=== PATIENT | female | born 1980 | race Caucasian/White ===

== ENCOUNTER 2017-09-10 14:27 | Emergency (ER) | payer OTHER ==
[~2017-09-10] VITALS: Ht 165.1 cm; Wt 74.8 kg
[~2017-09-10 14:27] MED LIST: MOTRIN800 MG PO; SYNTHROID75 MCG
[2017-09-10] MEDS ORDERED: VOLTAREN-XR100 MG PO (17:29)
[2017-09-10] MEDS ORDERED: CYCLOBENZAPRINE10 MG PO (17:29)
== END 2017-09-10 18:59 | disposition home or self-care (01) ==
LOC: ER 14:27
DX: R20.0 Anesthesia of skin (principal); M62.838 Other muscle spasm

== ENCOUNTER 2020-06-12 11:22 | Emergency (ER) | payer OTHER ==
[~2020-06-12] VITALS: Ht 157.5 cm; Wt 77.1 kg
[~2020-06-12 11:22] MED LIST changes: +CYCLOBENZAPRINE10 MG PO; +VOLTAREN-XR100 MG PO
[2020-06-12] MEDS ORDERED: FLONASE ALLERG9.9 ML NASAL ×2 (14:13→14:17)
[2020-06-12] MEDS ORDERED: MUCINEX DM ER1 EAC1 PO ×2 (14:13→14:17)
== END 2020-06-12 14:48 | disposition home or self-care (01) ==
LOC: ER 11:22
DX: B34.8 Other viral infections of unspecified site (principal); Z20.828 Contact with and (suspected) exposure to other viral communicable diseases

== ENCOUNTER → 2021-11-13 12:07 | Outpatient (CLI) | payer OTHER ==
[~2021-11-13 12:07] MED LIST changes: +FLONASE ALLERG9.9 ML NASAL; +MUCINEX DM ER1 EAC1 PO
== END | disposition home or self-care (01) ==
LOC: MAMO-SONO 12:07
PROVIDERS: ATTEND Obstetrics & Gynecology
DX: N60.09 Solitary cyst of unspecified breast (principal)

== ENCOUNTER 2022-07-13 10:13 | Outpatient (CLI) | payer OTHER | END 2022-07-13 12:18 | disposition home or self-care (01) | LOC: PRENATAL 10:13 | PROVIDERS: ATTEND Obstetrics & Gynecology Maternal & Fetal Medicine | DX: O36.80X0 Pregnancy with inconclusive fetal viability, not applicable or unspecified (principal); O99.280 Endocrine, nutritional and metabolic diseases complicating pregnancy, unspecified trimester; O09.529 Supervision of elderly multigravida, unspecified trimester; Z3A.11 11 weeks gestation of pregnancy ==

== ENCOUNTER 2022-09-09 07:52 | Outpatient (CLI) | payer OTHER | END 2022-09-09 09:25 | disposition home or self-care (01) | LOC: PRENATAL 07:52 | PROVIDERS: ATTEND Obstetrics & Gynecology Maternal & Fetal Medicine | DX: O35.9XX0 Maternal care for (suspected) fetal abnormality and damage, unspecified, not applicable or unspecified (principal); O35.3XX0 Maternal care for (suspected) damage to fetus from viral disease in mother, not applicable or unspecified; O09.519 Supervision of elderly primigravida, unspecified trimester; Z3A.20 20 weeks gestation of pregnancy ==

== ENCOUNTER 2022-11-03 12:22 | Outpatient (CLI) | payer OTHER | END 2022-11-03 13:13 | disposition home or self-care (01) | LOC: PRENATAL 12:22 | PROVIDERS: ATTEND Obstetrics & Gynecology Maternal & Fetal Medicine | DX: O26.849 Uterine size-date discrepancy, unspecified trimester (principal); O09.529 Supervision of elderly multigravida, unspecified trimester; O99.280 Endocrine, nutritional and metabolic diseases complicating pregnancy, unspecified trimester; O99.891 Other specified diseases and conditions complicating pregnancy; O44.00 Complete placenta previa NOS or without hemorrhage, unspecified trimester; Z3A.27 27 weeks gestation of pregnancy ==

== ENCOUNTER 2022-12-15 08:45 | Outpatient (CLI) | payer OTHER | END 2022-12-15 10:00 | disposition home or self-care (01) | LOC: PRENATAL 08:45 | PROVIDERS: ATTEND Obstetrics & Gynecology Maternal & Fetal Medicine | DX: O26.849 Uterine size-date discrepancy, unspecified trimester (principal); O36.8199 Decreased fetal movements, unspecified trimester, other fetus; O09.529 Supervision of elderly multigravida, unspecified trimester; O99.280 Endocrine, nutritional and metabolic diseases complicating pregnancy, unspecified trimester; O24.419 Gestational diabetes mellitus in pregnancy, unspecified control; Z3A.32 32 weeks gestation of pregnancy ==

== ENCOUNTER 2023-01-11 11:18 | Outpatient (CLI) | payer OTHER | END 2023-01-11 14:25 | disposition home or self-care (01) | LOC: PRENATAL 11:18 | PROVIDERS: ATTEND Obstetrics & Gynecology Maternal & Fetal Medicine | DX: O26.849 Uterine size-date discrepancy, unspecified trimester (principal); O36.8199 Decreased fetal movements, unspecified trimester, other fetus; O09.529 Supervision of elderly multigravida, unspecified trimester; O99.280 Endocrine, nutritional and metabolic diseases complicating pregnancy, unspecified trimester; O24.419 Gestational diabetes mellitus in pregnancy, unspecified control; Z3A.37 37 weeks gestation of pregnancy ==

== ENCOUNTER → 2024-05-30 | Outpatient (CLI) | payer OTHER | END | disposition home or self-care (01) | LOC: MAMO-SONO 08:46 | PROVIDERS: ATTEND Internal Medicine Endocrinology, Diabetes & Metabolism | DX: N64.4 Mastodynia (principal); Z12.31 Encounter for screening mammogram for malignant neoplasm of breast; E04.1 Nontoxic single thyroid nodule ==